=== PATIENT | female | born 1945 | race Two or more races ===

== ENCOUNTER 2020-12-09 13:26 | Inpatient (IN) | payer MEDICARE, OTHER ==
[~2020-12-09] VITALS: Ht 162.6 cm; Wt 83.7 kg
[2020-12-09 14:51] LABS: Basophils # (auto) 0 10 ^3/uL (0-0.2); Eosinophils # (auto) 0 10 ^3/uL (0-0.8); Eosinophils % (auto) 0.2 % (0.0-7.0); Hemoglobin 13.1 g/dL (12.2-16.2); Lymphocytes # (auto) 0.6 10 ^3/uL (0.4-5.4); Mean Corpuscular Volume 95.9 fL (80.0-100.0); Monocytes # (auto) 0.5 10 ^3/uL (0-1.3)
[2020-12-09 14:53] LABS: Basophils % (auto) 0.3 % (0.0-2.0); Hematocrit 37.2 % (36.0-46.0); Lymphocytes % (auto) 10.8 % (10.0-50.0); Mean Corpuscular Hemoglobin 33.8 pg (28.0-32.0); Mean Corpuscular Hgb Conc. 35.3 g/dL (32.0-36.0); Monocytes % (auto) 9.1 % (0.0-12.0); Neutrophils # (auto) 4.7 10 ^3/uL (1.6-8.6); Neutrophils % (auto) 79.6 % (37.0-80.0); Nucleated Red Blood Cells % 0.6 %; Platelet Count (auto) 39 10^3/uL (140-450); Red Blood Cells 3.88 10^6/uL (4.0-5.20); Red Cell Distribution Width 15.8 % (11.8-14.3); White Blood Cell 5.9 10^3/uL (4.4-10.8)
[2020-12-09 15:01] LABS: Albumin 3.2 g/dL (3.4-5.0); Calcium 7.8 mg/dL (8.5-10.1); Chloride 108 mmol/L (98-107); Potassium 3.3 mmol/L (3.5-5.1); Sodium 136 mmol/L (136-145)
[2020-12-09 15:04] LABS: Alanine Aminotransferase 20 U/L (13-56); Anion Gap 7 (5-15); Aspartate Aminotransferase 26 U/L (15-37); BUN/Creatinine Ratio 15.7; Blood Urea Nitrogen 13 mg/dL (7-18); Carbon Dioxide 21 mmol/L (21-32); GFR African American 86 mL/min; GFR Non-African American 71 mL/min; Glucose 203 mg/dL (74-106)
[2020-12-09 15:05] LABS: Alkaline Phosphatase 59 U/L (45-117); Bilirubin, Total 5.8 mg/dL (0.2-1.0)
[2020-12-09] MEDS ORDERED: POTASSIUM EFFERVESENT TAB 25 MEQ PO ONE (17:00)
[2020-12-09 18:15] LABS: Urine Bacteria NONE SEEN /hpf (None Seen); Urine Blood Negative /uL (Negative); Urine Mucus FEW (None Seen); Urine Specific Gravity 1.023 (1.001-1.035); Urine WBC 3 /hpf (0 - 5)
[2020-12-09] MEDS ORDERED: HYDROcodone-ACET 5/325MG TAB PO PRN (19:00)
[2020-12-09] MEDS ORDERED: IPRATROPIUM BROM 0.5 MG/2.5ML INH SOL NEB PRN (19:00)
[2020-12-09] MEDS ORDERED: NITROGLYCERIN 0.4 MG SL TAB SL PRN (19:00)
[2020-12-09] MEDS ORDERED: levoFLOXacin 500MG 100 ML IV SCH (19:00)
[2020-12-09] MEDS ORDERED: DEXTROSE (50%) 50ML SYRG IV PRN (19:00)
[2020-12-09] MEDS ORDERED: SODIUM CHLORIDE 0.9% 1,000 ML IV ONE (19:00)
[2020-12-09] MEDS ORDERED: DOCUSATE SOD 100 MG CAP PO PRN (19:00)
[2020-12-09] MEDS ORDERED: ONDANSETRON HCL 4 MG/2 ML VIAL IV PRN (19:00)
[2020-12-09] MEDS ORDERED: MORPHINE SULF INJ 2 MG/ML SYRINGE 1ML IV PRN ×2 (19:00)
[2020-12-09] MEDS ORDERED: ALBUTEROL SULF 2.5 MG/0.5ML(0.5%) NEB SOLN NEB PRN (19:00)
[2020-12-09 19:07] VITALS: BP 146/66
[2020-12-09] MEDS: ACETAMINOPHEN 500 MG TAB PO PRN (20:00)
[2020-12-09 22:00] VITALS: BP 123/70
[2020-12-09] MEDS: ACCU-CHEK COMFORT CURVE STRIP VI SCH (22:00)
[2020-12-09] MEDS: InsuLIN REG 1unit/0.01ml Soln (100units/ml) SC SCH (22:00)
[2020-12-09] MEDS ORDERED: SPIR25TA8 PO (22:15)
[2020-12-09] MEDS ORDERED: MECL25TA18 PO (22:15)
[2020-12-09] MEDS ORDERED: POTA8TAB2 PO (22:15)
[2020-12-09] MEDS ORDERED: PANT1INJ3 PO (22:15)
[2020-12-09] MEDS ORDERED: FURO40TA4 PO (22:15)
[2020-12-10 04:32] VITALS: BP 134/76
[2020-12-10 06:05] LABS: Basophils # (auto) 0 10 ^3/uL (0-0.2); Hemoglobin 11.8 g/dL (12.2-16.2); Lymphocytes # (auto) 0.5 10 ^3/uL (0.4-5.4); Monocytes # (auto) 0.3 10 ^3/uL (0-1.3); Neutrophils # (auto) 2.6 10 ^3/uL (1.6-8.6); Red Blood Cells 3.47 10^6/uL (4.0-5.20)
[2020-12-10 06:08] LABS: Basophils % (auto) 0.3 % (0.0-2.0); Eosinophils # (auto) 0.1 10 ^3/uL (0-0.8); Eosinophils % (auto) 1.5 % (0.0-7.0); Hematocrit 32.9 % (36.0-46.0); Lymphocytes % (auto) 13.7 % (10.0-50.0); Mean Corpuscular Hgb Conc. 35.8 g/dL (32.0-36.0); Mean Corpuscular Volume 94.9 fL (80.0-100.0); Monocytes % (auto) 9.4 % (0.0-12.0); Neutrophils % (auto) 75.1 % (37.0-80.0); Nucleated Red Blood Cells % 0.1 %; Platelet Count (auto) 26 10^3/uL (140-450); Red Cell Distribution Width 15.6 % (11.8-14.3); White Blood Cell 3.4 10^3/uL (4.4-10.8)
[2020-12-10] MEDS: ACCU-CHEK COMFORT CURVE STRIP VI SCH ×2 (06:22→11:54)
[2020-12-10] MEDS: InsuLIN REG 1unit/0.01ml Soln (100units/ml) SC SCH ×2 (06:22→11:57)
[2020-12-10 06:34] LABS: Potassium 3.6 mmol/L (3.5-5.1)
[2020-12-10 06:43] LABS: Albumin 2.8 g/dL (3.4-5.0); BUN/Creatinine Ratio 19.6; Bilirubin, Total 5.6 mg/dL (0.2-1.0); Calcium 7.5 mg/dL (8.5-10.1); Total Protein 6.3 g/dL (6.4-8.2)
[2020-12-10] MEDS ORDERED: VANCOMYCIN PER PHARMACY 0 MG IV SCH (06:45)
[2020-12-10 08:00] VITALS: BP 138/60
[2020-12-10 08:35] VITALS: BP 138/60
[2020-12-10] MEDS ORDERED: VANCOMYCIN 1GM/250ML 250 ML IV ONE (09:15)
[2020-12-10] MEDS ORDERED: FAMOTIDINE 20 MG TAB PO SCH (10:00)
[2020-12-10] MEDS ORDERED: diphenhdrAMINE HCL 25 MG CAP PO ONE (12:15)
[2020-12-10 12:53] VITALS: BP 125/70
[2020-12-10] MEDS ORDERED: VANCOMYCIN HCL 125MG/5ML ORAL SOL GT ONE (14:15)
[2020-12-10] MEDS ORDERED: SODIUM CHLORIDE 0.9% 1,000 ML IV ONE (14:15)
[2020-12-10] MEDS ORDERED: guaiFENesin-DM 100/10mg/5ml SYR PO PRN (14:15)
[2020-12-10] MEDS: ACETAMINOPHEN 500 MG TAB PO PRN (16:25)
[2020-12-10 17:00] VITALS: BP 132/74
[2020-12-10] MEDS: VANCOMYCIN HCL 125MG/5ML ORAL SOL PO SCH ×2 (18:32→22:02)
[2020-12-10] MEDS ORDERED: levoFLOXacin 750MG 150 ML IV SCH (19:00)
[2020-12-10] MEDS ORDERED: levoFLOXacin 500MG 100 ML IV SCH (20:00)
[2020-12-10 22:00] VITALS: BP 111/74
[2020-12-11] MEDS ORDERED: VANCOMYCIN 1GM/250ML 250 ML IV SCH (03:00)
[2020-12-11 05:02] VITALS: BP 134/68
[2020-12-11 06:14] LABS: INR 1.21 (0.9-1.15)
[2020-12-11] MEDS: VANCOMYCIN HCL 125MG/5ML ORAL SOL PO SCH ×4 (06:17→21:35)
[2020-12-11 06:26] LABS: Albumin 2.8 g/dL (3.4-5.0); Calcium 7.6 mg/dL (8.5-10.1); Potassium 3.8 mmol/L (3.5-5.1)
[2020-12-11 06:29] LABS: Total Protein 6.2 g/dL (6.4-8.2)
[2020-12-11 06:56] LABS: Basophils # (auto) 0 10 ^3/uL (0-0.2); Basophils % (auto) 0.9 % (0.0-2.0); Eosinophils # (auto) 0.1 10 ^3/uL (0-0.8); Eosinophils % (auto) 2.8 % (0.0-7.0); Hematocrit 31.9 % (36.0-46.0); Hemoglobin 11.4 g/dL (12.2-16.2); Lymphocytes # (auto) 0.5 10 ^3/uL (0.4-5.4); Mean Corpuscular Hgb Conc. 35.6 g/dL (32.0-36.0); Mean Corpuscular Volume 95.6 fL (80.0-100.0); Monocytes # (auto) 0.2 10 ^3/uL (0-1.3); Monocytes % (auto) 8.7 % (0.0-12.0); Neutrophils # (auto) 1.7 10 ^3/uL (1.6-8.6); Neutrophils % (auto) 68.6 % (37.0-80.0); Nucleated Red Blood Cells % 0.3 %; Platelet Count (auto) 32 10^3/uL (140-450); Red Blood Cells 3.34 10^6/uL (4.0-5.20); Red Cell Distribution Width 15.5 % (11.8-14.3); White Blood Cell 2.4 10^3/uL (4.4-10.8)
[2020-12-11 08:00] VITALS: BP 119/71
[2020-12-11 08:56] VITALS: BP 119/71
[2020-12-11] MEDS: FAMOTIDINE 20 MG TAB PO SCH (10:28)
[2020-12-11] MEDS ORDERED: SPIRONOLACTONE 25 MG TAB PO ONE (11:00)
[2020-12-11] MEDS ORDERED: cefTRIAXone 1GM/50ML D5W 50 ML IV ONE (11:00)
[2020-12-11 13:00] VITALS: BP 108/66
[2020-12-11 16:50] VITALS: BP 129/71
[2020-12-11 22:32] VITALS: BP 122/72
[2020-12-12 05:19] VITALS: BP 99/57
[2020-12-12] MEDS: VANCOMYCIN HCL 125MG/5ML ORAL SOL PO SCH ×4 (06:07→22:09)
[2020-12-12 07:06] LABS: Basophils # (auto) 0 10 ^3/uL (0-0.2); Basophils % (auto) 0.5 % (0.0-2.0); Eosinophils # (auto) 0.1 10 ^3/uL (0-0.8); Hemoglobin 11.6 g/dL (12.2-16.2); Lymphocytes # (auto) 0.6 10 ^3/uL (0.4-5.4); Mean Corpuscular Volume 95.2 fL (80.0-100.0); Monocytes # (auto) 0.2 10 ^3/uL (0-1.3); Neutrophils # (auto) 1.8 10 ^3/uL (1.6-8.6); Platelet Count (auto) 47 10^3/uL (140-450)
[2020-12-12 07:09] LABS: Eosinophils % (auto) 3.5 % (0.0-7.0); Lymphocytes % (auto) 22.7 % (10.0-50.0); Mean Corpuscular Hemoglobin 34.5 pg (28.0-32.0); Mean Corpuscular Hgb Conc. 36.2 g/dL (32.0-36.0); Monocytes % (auto) 7.9 % (0.0-12.0); Neutrophils % (auto) 65.4 % (37.0-80.0); Nucleated Red Blood Cells % 0.2 %; Red Blood Cells 3.36 10^6/uL (4.0-5.20); Red Cell Distribution Width 15.2 % (11.8-14.3); White Blood Cell 2.8 10^3/uL (4.4-10.8)
[2020-12-12 07:20] LABS: Potassium 3.8 mmol/L (3.5-5.1)
[2020-12-12 07:25] LABS: Albumin 2.7 g/dL (3.4-5.0); BUN/Creatinine Ratio 19.6
[2020-12-12 07:27] LABS: Bilirubin, Total 1.6 mg/dL (0.2-1.0); Total Protein 6.1 g/dL (6.4-8.2)
[2020-12-12 08:40] VITALS: BP 123/66
[2020-12-12] MEDS: cefTRIAXone 1GM/50ML D5W 50 ML IV SCH (10:32)
[2020-12-12] MEDS: FAMOTIDINE 20 MG TAB PO SCH (10:32)
[2020-12-12] MEDS: SPIRONOLACTONE 25 MG TAB PO SCH (10:32)
[2020-12-12 13:00] VITALS: BP 119/62
[2020-12-12 17:00] VITALS: BP 123/74
[2020-12-12 21:33] VITALS: BP 123/74
[2020-12-12 21:49] VITALS: BP 107/58
[2020-12-13 04:55] VITALS: BP 111/55
[2020-12-13] MEDS: VANCOMYCIN HCL 125MG/5ML ORAL SOL PO SCH ×2 (05:58→12:00)
[2020-12-13 07:31] LABS: Basophils # (auto) 0 10 ^3/uL (0-0.2); Eosinophils # (auto) 0.1 10 ^3/uL (0-0.8); Lymphocytes # (auto) 0.6 10 ^3/uL (0.4-5.4); Monocytes # (auto) 0.2 10 ^3/uL (0-1.3); Neutrophils # (auto) 1.9 10 ^3/uL (1.6-8.6); Nucleated Red Blood Cells % 0.1 %
[2020-12-13 07:32] LABS: Basophils % (auto) 0.9 % (0.0-2.0); Eosinophils % (auto) 2.7 % (0.0-7.0); Hematocrit 33.6 % (36.0-46.0); Hemoglobin 12.1 g/dL (12.2-16.2); Lymphocytes % (auto) 20.3 % (10.0-50.0); Mean Corpuscular Hemoglobin 34.2 pg (28.0-32.0); Monocytes % (auto) 7.7 % (0.0-12.0); Neutrophils % (auto) 68.4 % (37.0-80.0); Platelet Count (auto) 54 10^3/uL (140-450); Red Blood Cells 3.54 10^6/uL (4.0-5.20); Red Cell Distribution Width 15.3 % (11.8-14.3); White Blood Cell 2.7 10^3/uL (4.4-10.8)
[2020-12-13 07:46] LABS: Potassium 3.8 mmol/L (3.5-5.1)
[2020-12-13 07:52] LABS: BUN/Creatinine Ratio 18.3; Calcium 8.5 mg/dL (8.5-10.1)
[2020-12-13] MEDS: cefTRIAXone 1GM/50ML D5W 50 ML IV SCH (08:47)
[2020-12-13 09:00] VITALS: BP 120/50
[2020-12-13] MEDS: FAMOTIDINE 20 MG TAB PO SCH (09:38)
[2020-12-13] MEDS: SPIRONOLACTONE 25 MG TAB PO SCH (09:38)
[2020-12-13 13:00] VITALS: BP 110/55
== END 2020-12-13 15:30 | disposition home or self-care (01) | DRG 871 ==
LOC: ER 13:26 → TELE 18:51 → TELE-EAST 20:38
PROVIDERS: ADMIT Nurse Practitioner Acute Care; ATTEND Internal Medicine
DX: A41.9 Sepsis, unspecified organism (principal); N17.0 Acute kidney failure with tubular necrosis; E44.0 Moderate protein-calorie malnutrition; K76.6 Portal hypertension; I50.32 Chronic diastolic (congestive) heart failure; Z20.822 Contact with and (suspected) exposure to COVID-19; E87.6 Hypokalemia; K74.60 Unspecified cirrhosis of liver; B96.5 Pseudomonas (aeruginosa) (mallei) (pseudomallei) as the cause of diseases classified elsewhere; D69.59 Other secondary thrombocytopenia; E66.9 Obesity, unspecified; E11.22 Type 2 diabetes mellitus with diabetic chronic kidney disease; J20.9 Acute bronchitis, unspecified; K52.9 Noninfective gastroenteritis and colitis, unspecified; K80.20 Calculus of gallbladder without cholecystitis without obstruction; N18.9 Chronic kidney disease, unspecified; Z68.31 Body mass index [BMI] 31.0-31.9, adult
CPT/HCPCS: 36415; 71045; 71250; 74176; 80048; 80053; 81001; 82565; 82962; 83036; 83605; 83735; 83880; 84443; 84484; 85025; 85610; 87040; 87045; 87070; 87077; 87186; 87205; 87426; 87427; 87493; 87804; 93005; 93306; 94640; 96365; 96368; G0378; J0696; J1815; J1956

== ENCOUNTER 2021-03-25 14:39 | Emergency (ER) | payer MEDICARE, OTHER ==
[~2021-03-25] VITALS: Ht 162.6 cm; Wt 77.1 kg
[~2021-03-25 14:39] MED LIST: FURO40TA4 PO; MECL25TA18 PO; PANT1INJ3 PO; POTA8TAB2 PO; SPIR25TA8 PO
[2021-03-25 15:37] LABS: Basophils # (auto) 0 10 ^3/uL (0-0.2); Eosinophils # (auto) 0.1 10 ^3/uL (0-0.8); Hemoglobin 14.4 g/dL (12.2-16.2); Lymphocytes # (auto) 0.9 10 ^3/uL (0.4-5.4); Mean Corpuscular Volume 96.1 fL (80.0-100.0); Monocytes # (auto) 0.4 10 ^3/uL (0-1.3); Monocytes % (auto) 6.2 % (0.0-12.0); Red Cell Distribution Width 15.8 % (11.8-14.3)
[2021-03-25 15:38] LABS: Basophils % (auto) 0.7 % (0.0-2.0); Eosinophils % (auto) 1.3 % (0.0-7.0); Hematocrit 40.2 % (36.0-46.0); Lymphocytes % (auto) 13.9 % (10.0-50.0); Mean Corpuscular Hemoglobin 34.4 pg (28.0-32.0); Mean Corpuscular Hgb Conc. 35.8 g/dL (32.0-36.0); Neutrophils # (auto) 4.9 10 ^3/uL (1.6-8.6); Neutrophils % (auto) 77.9 % (37.0-80.0); Red Blood Cells 4.18 10^6/uL (4.0-5.20); White Blood Cell 6.3 10^3/uL (4.4-10.8)
[2021-03-25 15:54] LABS: Albumin 3.1 g/dL (3.4-5.0); BUN/Creatinine Ratio 14.5; Calcium 8.3 mg/dL (8.5-10.1)
[2021-03-25 15:57] LABS: Bilirubin, Total 3.4 mg/dL (0.2-1.0); Total Protein 6.6 g/dL (6.4-8.2)
[2021-03-25 18:38] VITALS: BP 138/86
== END 2021-03-25 18:40 | disposition home or self-care (01) ==
LOC: ER 14:45
DX: N93.8 Other specified abnormal uterine and vaginal bleeding (principal); D21.9 Benign neoplasm of connective and other soft tissue, unspecified; I10 Essential (primary) hypertension; E11.9 Type 2 diabetes mellitus without complications
CPT/HCPCS: 36415; 76830; 76856; 80053; 85025; 86850; 86900; 86901; 93005

== ENCOUNTER 2022-05-24 17:17 | Inpatient (IN) | payer MEDICARE, OTHER ==
[~2022-05-24] VITALS: Ht 160 cm; Wt 81.9 kg
[~2022-05-24 17:17] MED LIST changes: +AZIT250T9 PO
[2022-05-24 19:03] LABS: Basophils # (auto) 0 10 ^3/uL (0-0.2); Eosinophils # (auto) 0 10 ^3/uL (0-0.8); Eosinophils % (auto) 0.4 % (0.0-7.0); Lymphocytes # (auto) 0.7 10 ^3/uL (0.4-5.4); Nucleated Red Blood Cells % 0.1 %
[2022-05-24 19:05] LABS: Basophils % (auto) 0.5 % (0.0-2.0); Hematocrit 40.1 % (36.0-46.0); Hemoglobin 13.8 g/dL (12.2-16.2); Lymphocytes % (auto) 11.3 % (10.0-50.0); Mean Corpuscular Hemoglobin 32.6 pg (28.0-32.0); Mean Corpuscular Hgb Conc. 34.5 g/dL (32.0-36.0); Mean Corpuscular Volume 94.6 fL (80.0-100.0); Monocytes # (auto) 0.5 10 ^3/uL (0-1.3); Monocytes % (auto) 7.2 % (0.0-12.0); Neutrophils # (auto) 5.1 10 ^3/uL (1.6-8.6); Neutrophils % (auto) 80.6 % (37.0-80.0); Red Blood Cells 4.24 10^6/uL (4.0-5.20); Red Cell Distribution Width 15.4 % (11.8-14.3); White Blood Cell 6.3 10^3/uL (4.4-10.8)
[2022-05-24 19:19] LABS: Albumin 3.3 g/dL (3.4-5.0); Calcium 8.5 mg/dL (8.5-10.1); Potassium 3.7 mmol/L (3.5-5.1)
[2022-05-24 19:23] LABS: BUN/Creatinine Ratio 12.8; Bilirubin, Total 4.9 mg/dL (0.2-1.0); Total Protein 7.1 g/dL (6.4-8.2)
[2022-05-24 20:45] LABS: Urine Bacteria FEW /hpf (None Seen); Urine Blood Negative /uL (Negative); Urine Specific Gravity 1.005 (1.001-1.035); Urine WBC 1 /hpf (0 - 5)
[2022-05-25] MEDS ORDERED: AZITHROMYCIN 250 MG TAB PO ONE (07:45)
[2022-05-25] MEDS ORDERED: cefTRIAXone 1GM/50ML D5W 50 ML IV ONE (07:45)
[2022-05-25] MEDS ORDERED: NITROGLYCERIN 0.4 MG SL TAB SL PRN (08:15)
[2022-05-25] MEDS ORDERED: MORPHINE SULFATE INJ 2 MG/ml SYRG IV PRN (08:15)
[2022-05-25] MEDS ORDERED: CEFTRIAXONE SODIUM 2 GM in D5W 5% 50 ML IV SCH (10:49)
[2022-05-25] MEDS: PROPRANOLOL HCL 20 MG TAB PO SCH ×2 (11:15→21:30)
[2022-05-25] MEDS ORDERED: DEXTROSE (50%) 50ML SYRG IV PRN (11:15)
[2022-05-25] MEDS: rifAXIMin 550 MG TAB PO SCH ×2 (11:38→21:30)
[2022-05-25] MEDS: ACCU-CHEK COMFORT CURVE STRIP VI SCH ×3 (11:43→21:17)
[2022-05-25] MEDS: InsuLIN REG 1unit/0.01ml Soln (100units/ml) SC SCH ×3 (11:46→21:31)
[2022-05-25 11:52] LABS: Cholesterol 104 mg/dL (< 200); HDL Cholesterol 47 mg/dL (40-59); LDL Cholesterol 61 mg/dL (< 100); Triglycerides 111 mg/dL (< 150)
[2022-05-25] MEDS ORDERED: LACTULOSE 20Gm/30ML SOLN PO ONE (14:00)
[2022-05-25 16:37] VITALS: BP 137/69
[2022-05-25] MEDS ORDERED: PROP10TA57 PO (18:25)
[2022-05-25 20:00] VITALS: BP 126/58
[2022-05-25 22:00] VITALS: BP 126/58
[2022-05-25] MEDS ORDERED: PROPRANOLOL HCL 20 MG TAB PO SCH (22:00)
[2022-05-26] VITALS (7 sets, daily range): BP systolic 100–157; BP diastolic 49–67
[2022-05-26] MEDS: InsuLIN REG 1unit/0.01ml Soln (100units/ml) SC SCH ×4 (06:14→21:22)
[2022-05-26] MEDS: ACCU-CHEK COMFORT CURVE STRIP VI SCH ×4 (06:29→21:22)
[2022-05-26 07:10] LABS: Eosinophils # (auto) 0.1 10 ^3/uL (0-0.8); Lymphocytes # (auto) 0.8 10 ^3/uL (0.4-5.4); Monocytes # (auto) 0.3 10 ^3/uL (0-1.3); Neutrophils # (auto) 2.5 10 ^3/uL (1.6-8.6); Red Cell Distribution Width 15.4 % (11.8-14.3)
[2022-05-26 07:13] LABS: Basophils # (auto) 0 10 ^3/uL (0-0.2); Basophils % (auto) 0.7 % (0.0-2.0); Eosinophils % (auto) 3.5 % (0.0-7.0); Hematocrit 37.8 % (36.0-46.0); Hemoglobin 13.2 g/dL (12.2-16.2); Lymphocytes % (auto) 21.8 % (10.0-50.0); Mean Corpuscular Volume 94.2 fL (80.0-100.0); Monocytes % (auto) 7.5 % (0.0-12.0); Neutrophils % (auto) 66.5 % (37.0-80.0); Red Blood Cells 4.01 10^6/uL (4.0-5.20); White Blood Cell 3.7 10^3/uL (4.4-10.8)
[2022-05-26 07:14] LABS: Mean Corpuscular Hemoglobin 32.9 pg (28.0-32.0); Mean Corpuscular Hgb Conc. 34.9 g/dL (32.0-36.0)
[2022-05-26 07:40] LABS: Potassium 3.8 mmol/L (3.5-5.1)
[2022-05-26 07:49] LABS: Albumin 2.8 g/dL (3.4-5.0); Calcium 7.9 mg/dL (8.5-10.1); Total Protein 6.1 g/dL (6.4-8.2)
[2022-05-26] MEDS ORDERED: cefTRIAXone 1GM/50ML D5W 50 ML IV SCH (09:00)
[2022-05-26] MEDS ORDERED: AZITHROMYCIN 500MG/ 250ML 250 ML IV SCH (10:00)
[2022-05-26] MEDS: PROPRANOLOL HCL 20 MG TAB PO SCH (10:00)
[2022-05-26] MEDS: rifAXIMin 550 MG TAB PO SCH (10:13)
[2022-05-26] MEDS: SPIRONOLACTONE 25 MG TAB PO SCH (10:14)
[2022-05-26] MEDS: PANTOPRAZOLE 40 MG TAB PO SCH (10:15)
[2022-05-26] MEDS ORDERED: ALBUTEROL SULF 2.5 MG/0.5ML(0.5%) NEB SOLN NEB PRN (12:00)
[2022-05-26] MEDS ORDERED: IPRATROPIUM BROM 0.5 MG/2.5ML INH SOL NEB PRN (12:00)
[2022-05-27 05:00] VITALS: BP 112/56
[2022-05-27 05:25] LABS: Basophils # (auto) 0 10 ^3/uL (0-0.2); Eosinophils # (auto) 0.1 10 ^3/uL (0-0.8); Hemoglobin 12.5 g/dL (12.2-16.2); Lymphocytes # (auto) 0.9 10 ^3/uL (0.4-5.4); Monocytes # (auto) 0.2 10 ^3/uL (0-1.3); Neutrophils # (auto) 2.1 10 ^3/uL (1.6-8.6); White Blood Cell 3.4 10^3/uL (4.4-10.8)
[2022-05-27 05:28] LABS: Basophils % (auto) 1.1 % (0.0-2.0); Eosinophils % (auto) 3.1 % (0.0-7.0); Hematocrit 35.5 % (36.0-46.0); Mean Corpuscular Hemoglobin 34.1 pg (28.0-32.0); Mean Corpuscular Hgb Conc. 35.3 g/dL (32.0-36.0); Mean Corpuscular Volume 96.4 fL (80.0-100.0); Monocytes % (auto) 6.5 % (0.0-12.0); Neutrophils % (auto) 63.3 % (37.0-80.0); Nucleated Red Blood Cells % 0.1 %; Red Blood Cells 3.68 10^6/uL (4.0-5.20); Red Cell Distribution Width 15.4 % (11.8-14.3)
[2022-05-27 05:42] LABS: Albumin 2.6 g/dL (3.4-5.0); Calcium 7.9 mg/dL (8.5-10.1); Potassium 3.7 mmol/L (3.5-5.1)
[2022-05-27 05:44] LABS: BUN/Creatinine Ratio 25.5
[2022-05-27 05:57] LABS: Bilirubin, Total 2.5 mg/dL (0.2-1.0); Total Protein 5.7 g/dL (6.4-8.2)
[2022-05-27] MEDS: ACCU-CHEK COMFORT CURVE STRIP VI SCH ×2 (06:26→13:40)
[2022-05-27] MEDS: InsuLIN REG 1unit/0.01ml Soln (100units/ml) SC SCH ×2 (06:30→13:41)
[2022-05-27 08:00] VITALS: BP 124/61
[2022-05-27 09:00] VITALS: BP 124/61
[2022-05-27] MEDS ORDERED: levoFLOXacin 500MG 100 ML IV SCH (10:00)
[2022-05-27] MEDS ORDERED: DOXY-286 PO (10:44)
[2022-05-27] MEDS: SPIRONOLACTONE 25 MG TAB PO SCH (11:28)
[2022-05-27] MEDS: PANTOPRAZOLE 40 MG TAB PO SCH (11:29)
[2022-05-27 12:51] VITALS: BP 121/59
[2022-05-27 13:38] VITALS: BP 126/58
== END 2022-05-27 16:50 | disposition home or self-care (01) | DRG 441 ==
LOC: ER 17:17 → OVERFLOW 05-25 08:19 → WEST WING 05-25 14:37
PROVIDERS: ADMIT Family Medicine; ATTEND Nurse Practitioner Acute Care
DX: K72.90 Hepatic failure, unspecified without coma (principal); J18.9 Pneumonia, unspecified organism; E46 Unspecified protein-calorie malnutrition; G93.40 Encephalopathy, unspecified; I50.32 Chronic diastolic (congestive) heart failure; I85.10 Secondary esophageal varices without bleeding; E11.9 Type 2 diabetes mellitus without complications; I11.0 Hypertensive heart disease with heart failure; D73.1 Hypersplenism; Z20.822 Contact with and (suspected) exposure to COVID-19; E66.9 Obesity, unspecified; J45.909 Unspecified asthma, uncomplicated; W18.39XA Other fall on same level, initial encounter; K74.60 Unspecified cirrhosis of liver; D69.6 Thrombocytopenia, unspecified; I25.2 Old myocardial infarction; Z82.49 Family history of ischemic heart disease and other diseases of the circulatory system; Z83.3 Family history of diabetes mellitus; Y93.89 Activity, other specified; Y92.89 Other specified places as the place of occurrence of the external cause; Y99.8 Other external cause status; Z68.28 Body mass index [BMI] 28.0-28.9, adult
CPT/HCPCS: 36415; 70450; 71045; 71250; 72125; 74176; 80053; 80061; 81001; 82140; 82270; 82962; 83036; 83605; 83690; 83880; 84443; 84484; 85025; 93005; 96365; G0378; J0696; J1815; J1956; J7060

== ENCOUNTER 2023-05-10 09:17 | Emergency (ER) | payer MEDICARE, OTHER ==
[~2023-05-10] VITALS: Ht 162.6 cm; Wt 80.0 kg
[~2023-05-10 09:17] MED LIST changes: -AZIT250T9 PO; +DOXY-286 PO; -MECL25TA18 PO; -PANT1INJ3 PO; -POTA8TAB2 PO; +POTA8TAB38 PO; +PROP1TAB51 PO
[2023-05-10 10:00] VITALS: BP 153/66; PULSE 70; RESP 20; TEMP 97.1; O2SAT 99
[2023-05-10] MEDS ORDERED: CEPH500C PO (12:28)
[2023-05-10] MEDS ORDERED: CEPHALEXIN 250 MG CAP PO ONE (12:30)
[2023-05-10] MEDS ORDERED: HYDROcodone-ACET 5/325MG TAB PO ONE (12:30)
== END 2023-05-10 13:17 | disposition home or self-care (01) ==
LOC: ER 09:17
DX: N63.20 Unspecified lump in the left breast, unspecified quadrant (principal); I11.0 Hypertensive heart disease with heart failure; I50.9 Heart failure, unspecified; E11.9 Type 2 diabetes mellitus without complications; Z79.2 Long term (current) use of antibiotics; Z79.899 Other long term (current) drug therapy; Z88.7 Allergy status to serum and vaccine
CPT/HCPCS: 76642

== ENCOUNTER 2023-09-29 10:19 | Emergency (ER) | payer MEDICARE, OTHER ==
[~2023-09-29] VITALS: Ht 167.6 cm; Wt 77.2 kg
[~2023-09-29 10:19] MED LIST changes: +CEPH500C PO; +HYDR-4902 PO
[2023-09-29 12:22] LABS: Basophils # (auto) 0 10 ^3/uL (0-0.2); Basophils % (auto) 0.5 % (0.0-2.0); Eosinophils # (auto) 0.1 10 ^3/uL (0-0.8); Eosinophils % (auto) 1.9 % (0.0-7.0); Hemoglobin 14.1 g/dL (12.2-16.2); Lymphocytes # (auto) 0.9 10 ^3/uL (0.4-5.4); Lymphocytes % (auto) 17.6 % (10.0-50.0); Mean Corpuscular Hemoglobin 33.7 pg (28.0-32.0); Mean Corpuscular Hgb Conc. 35.2 g/dL (32.0-36.0); Mean Corpuscular Volume 95.7 fL (80.0-100.0); Monocytes # (auto) 0.3 10 ^3/uL (0-1.3); Monocytes % (auto) 6.2 % (0.0-12.0); Neutrophils # (auto) 3.8 10 ^3/uL (1.6-8.6); Neutrophils % (auto) 73.8 % (37.0-80.0); Nucleated Red Blood Cells % 0.1 %; Red Blood Cells 4.18 10^6/uL (4.0-5.20); White Blood Cell 5.1 10^3/uL (4.4-10.8)
[2023-09-29 12:37] LABS: INR 1.15 (0.9-1.15); Partial Thromboplastin Time 29.2 SEC (24.5-34.5)
[2023-09-29 13:39] LABS: Platelet Estimate Decreased
[2023-09-29 14:06] VITALS: BP 132/60; PULSE 60; RESP 18; TEMP 98; O2SAT 97
== END 2023-09-29 14:07 | disposition home or self-care (01) ==
LOC: ER 10:19
DX: N93.8 Other specified abnormal uterine and vaginal bleeding (principal); D25.9 Leiomyoma of uterus, unspecified; E11.9 Type 2 diabetes mellitus without complications; I11.0 Hypertensive heart disease with heart failure; I50.9 Heart failure, unspecified
CPT/HCPCS: 36415; 76856; 85025; 85610; 85730

== ENCOUNTER 2024-02-28 18:56 | Inpatient (IN) | payer MEDICARE, OTHER ==
[~2024-02-28] VITALS: Ht 162.6 cm; Wt 75.0 kg
[2024-02-28 19:55] LABS: Basophils # (auto) 0 10 ^3/uL (0-0.2); Basophils % (auto) 0.8 % (0.0-2.0); Eosinophils # (auto) 0.1 10 ^3/uL (0-0.8); Eosinophils % (auto) 2.5 % (0.0-7.0); Lymphocytes % (auto) 19.6 % (10.0-50.0); Mean Corpuscular Hemoglobin 34.5 pg (28.0-32.0); Mean Corpuscular Hgb Conc. 35.7 g/dL (32.0-36.0); Mean Corpuscular Volume 96.8 fL (80.0-100.0); Monocytes # (auto) 0.4 10 ^3/uL (0-1.3); Monocytes % (auto) 7.2 % (0.0-12.0); Neutrophils # (auto) 3.7 10 ^3/uL (1.6-8.6); Neutrophils % (auto) 69.9 % (37.0-80.0); Nucleated Red Blood Cells % 0.3 %; Red Blood Cells 4.34 10^6/uL (4.0-5.20); Red Cell Distribution Width 15.8 % (11.8-14.3); White Blood Cell 5.3 10^3/uL (4.4-10.8)
[2024-02-28 20:00] LABS: Alanine Aminotransferase 25 U/L (7-40); Albumin 3.4 g/dL (3.2-4.8); Alkaline Phosphatase 82 U/L (46-116); Anion Gap 9 (5-15); Aspartate Aminotransferase 30 U/L (13-40); BUN/Creatinine Ratio 16.7 (10.0-20.0); Blood Urea Nitrogen 8 mg/dL (9-23); Carbon Dioxide 23 mmol/L (20-30); Chloride 110 mmol/L (98-107); Glucose 157 mg/dL (74-106); Sodium 142 mmol/L (136-145)
[2024-02-28 20:01] LABS: Bilirubin, Total 5.9 mg/dL (0.2-1.0); Total Protein 6.1 g/dL (5.7-8.2)
[2024-02-29] VITALS (7 sets, daily range): BP systolic 97–140; BP diastolic 48–69; PULSE 47–98; RESP 14–17; TEMP 97.5–98.6; O2SAT 92–98
[2024-02-29] MEDS ORDERED: MORPHINE SULFATE INJ 2 MG/ml SYRG IV PRN
[2024-02-29] MEDS: ONDANSETRON HCL 4 MG/2 ML VIAL IV ONE
[2024-02-29] MEDS ORDERED: ONDANSETRON HCL 4 MG/2 ML VIAL IV PRN
[2024-02-29] MEDS ORDERED: DEXTROSE (50%) 50ML SYRG IV PRN
[2024-02-29] MEDS: MORPHINE SULFATE 4 MG/ML SYR/VIAL IV ONE (00:01)
[2024-02-29] MEDS: ACCU-CHEK COMFORT CURVE STRIP VI SCH (06:21)
[2024-02-29] MEDS: InsuLIN REG 1unit/0.01ml Soln (100units/ml) SC SCH (06:23)
[2024-02-29 08:06] LABS: Chloride 110 mmol/L (98-107); Potassium 4.1 mmol/L (3.5-5.1); Sodium 141 mmol/L (136-145)
[2024-02-29 08:07] LABS: Anion Gap 6 (5-15); Carbon Dioxide 25 mmol/L (20-30)
[2024-02-29 08:08] LABS: Calcium 8.8 mg/dL (8.5-10.1)
[2024-02-29 08:12] LABS: BUN/Creatinine Ratio 24.4 (10.0-20.0); Blood Urea Nitrogen 10 mg/dL (9-23); Glucose 137 mg/dL (74-106)
[2024-02-29] MEDS: SPIRONOLACTONE 25 MG TAB PO SCH (09:48)
[2024-02-29] MEDS: PROPRANOLOL HCL 20 MG TAB PO SCH (09:49)
[2024-02-29] MEDS: FUROSEMIDE 40 MG TAB PO SCH (09:50)
[2024-02-29] MEDS: ENOXAPARIN SOD 40 MG/0.4 ML SYRINGE SC SCH (09:51)
[2024-02-29] MEDS: LIDOCAINE 5% TOPICAL PATCH TOP ONE (17:19)
[2024-02-29] MEDS: ACETAMINOPHEN 325 MG TAB PO PRN (17:19)
[2024-02-29] MEDS: LACTULOSE 20Gm/30ML SOLN PO SCH (21:55)
[2024-03-01 01:00] VITALS: BP 115/61; PULSE 51; RESP 17; TEMP 97.6; O2SAT 96
[2024-03-01 05:00] VITALS: BP 115/66; PULSE 56; RESP 16; TEMP 97.5; O2SAT 95
[2024-03-01 05:59] LABS: Basophils # (auto) 0 10 ^3/uL (0-0.2); Eosinophils # (auto) 0.1 10 ^3/uL (0-0.8); Lymphocytes # (auto) 0.9 10 ^3/uL (0.4-5.4); Mean Corpuscular Hgb Conc. 36.3 g/dL (32.0-36.0); Mean Corpuscular Volume 96.6 fL (80.0-100.0); White Blood Cell 3.6 10^3/uL (4.4-10.8)
[2024-03-01 06:00] LABS: Basophils % (auto) 0.9 % (0.0-2.0); Eosinophils % (auto) 2.9 % (0.0-7.0); Hematocrit 36.9 % (36.0-46.0); Hemoglobin 13.4 g/dL (12.2-16.2); Lymphocytes % (auto) 24.2 % (10.0-50.0); Monocytes # (auto) 0.2 10 ^3/uL (0-1.3); Monocytes % (auto) 6.7 % (0.0-12.0); Neutrophils # (auto) 2.4 10 ^3/uL (1.6-8.6); Neutrophils % (auto) 65.3 % (37.0-80.0); Nucleated Red Blood Cells % 0.1 %; Red Blood Cells 3.81 10^6/uL (4.0-5.20); Red Cell Distribution Width 16.1 % (11.8-14.3)
[2024-03-01 06:05] LABS: INR 1.23 (0.9-1.15); Prothrombin Time 12.8 sec (9.3-11.8)
[2024-03-01 06:10] LABS: Alanine Aminotransferase 17 U/L (7-40); Alkaline Phosphatase 94 U/L (46-116); Anion Gap 7 (5-15); Aspartate Aminotransferase 22 U/L (13-40); Blood Urea Nitrogen 13 mg/dL (9-23); Calcium 8.7 mg/dL (8.7-10.4); Carbon Dioxide 28 mmol/L (20-30); Chloride 105 mmol/L (98-107); Glucose 170 mg/dL (74-106); Potassium 3.4 mmol/L (3.5-5.1); Sodium 140 mmol/L (136-145)
[2024-03-01 06:11] LABS: Bilirubin, Total 4.1 mg/dL (0.2-1.0); Total Protein 5.6 g/dL (5.7-8.2)
[2024-03-01 09:00] VITALS: BP 118/54; PULSE 53; RESP 18; TEMP 97.4; O2SAT 97
[2024-03-01] MEDS: POTASSIUM CHL 20 Meq TABLET PO ONE (10:23)
[2024-03-01] MEDS: LIDOCAINE 5% TOPICAL PATCH TOP SCH (10:26)
[2024-03-01 13:00] VITALS: BP 113/55; PULSE 54; RESP 18; TEMP 97.4; O2SAT 94
[2024-03-01] MEDS: CALCITONIN 200 UNIT/SPRAY NASAL ONE (13:45)
[2024-03-01] MEDS: CHOLECALCIFEROL (VITD3) 1,000UNIT=25mCg TAB PO ONE (15:22)
[2024-03-01] MEDS: CALCIUM ACETATE 667 MG CAP PO ONE (15:23)
[2024-03-01 17:00] VITALS: BP 108/60; PULSE 63; RESP 18; TEMP 98; O2SAT 96
[2024-03-01 20:03] LABS: Urine Bacteria MOD /hpf (None Seen); Urine Blood Negative /uL (Negative); Urine Clarity Clear (Clear); Urine Color Light-Yellow (Yellow); Urine Mucus FEW (None Seen); Urine Protein, UAD Negative (Negative); Urine Urobilinogen Normal (Negative); Urine WBC 2 /hpf (0 - 5)
[2024-03-01 21:00] VITALS: BP 103/60; PULSE 60; RESP 17; TEMP 98.1; O2SAT 97
[2024-03-02 05:00] VITALS: BP 96/50; PULSE 57; RESP 19; TEMP 98.3; O2SAT 93
[2024-03-02 08:38] VITALS: BP 120/65; PULSE 56; RESP 15; TEMP 97.3; O2SAT 98
[2024-03-02] MEDS: CALCITONIN 200 UNIT/SPRAY NASAL SCH (10:00)
[2024-03-02] MEDS: cefTRIAXone 1GM/50ML D5W 50 ML IV SCH (10:44)
[2024-03-02] MEDS: CHOLECALCIFEROL (VITD3) 1,000UNIT=25mCg TAB PO SCH (10:44)
[2024-03-02] MEDS: CALCIUM ACETATE 667 MG CAP PO SCH (10:45)
[2024-03-02 13:00] VITALS: BP 103/71; PULSE 58; RESP 15; TEMP 97.8; O2SAT 96
[2024-03-02 16:26] VITALS: BP 117/59; PULSE 61; RESP 16; TEMP 98.6; O2SAT 98
[2024-03-02 16:48] LABS: Base Excess 3.2 mmol/L (-2.0-2.0)
[2024-03-02 21:00] VITALS: BP 101/51; PULSE 60; RESP 19; TEMP 98.1; O2SAT 96
[2024-03-03] VITALS (7 sets, daily range): BP systolic 100–152; BP diastolic 51–67; PULSE 55–72; RESP 17–21; TEMP 97.5–98.1; O2SAT 93–96
[2024-03-03 09:53] LABS: Basophils # (auto) 0 10 ^3/uL (0-0.2); Basophils % (auto) 0.8 % (0.0-2.0); Eosinophils # (auto) 0.1 10 ^3/uL (0-0.8); Eosinophils % (auto) 1.9 % (0.0-7.0); Hematocrit 36.7 % (36.0-46.0); Hemoglobin 13.1 g/dL (12.2-16.2); Lymphocytes # (auto) 0.6 10 ^3/uL (0.4-5.4); Lymphocytes % (auto) 18.9 % (10.0-50.0); Mean Corpuscular Hemoglobin 34.4 pg (28.0-32.0); Mean Corpuscular Hgb Conc. 35.8 g/dL (32.0-36.0); Mean Corpuscular Volume 96.3 fL (80.0-100.0); Monocytes # (auto) 0.2 10 ^3/uL (0-1.3); Monocytes % (auto) 6.7 % (0.0-12.0); Neutrophils # (auto) 2.2 10 ^3/uL (1.6-8.6); Neutrophils % (auto) 71.7 % (37.0-80.0); Nucleated Red Blood Cells % 0.2 %; Red Blood Cells 3.82 10^6/uL (4.0-5.20); Red Cell Distribution Width 15.8 % (11.8-14.3)
[2024-03-03 10:03] LABS: Chloride 106 mmol/L (98-107); Potassium 3.7 mmol/L (3.5-5.1); Sodium 139 mmol/L (136-145)
[2024-03-03 10:05] LABS: Anion Gap 2 (5-15); Calcium 9.2 mg/dL (8.7-10.4); Carbon Dioxide 31 mmol/L (20-30)
[2024-03-03 10:10] LABS: Glucose 215 mg/dL (74-106)
[2024-03-03 10:20] LABS: Blood Urea Nitrogen 10 mg/dL (9-23)
[2024-03-03] MEDS ORDERED: TRAM50TA2 PO (17:45)
[2024-03-03] MEDS ORDERED: FURO40TA4 PO (18:01)
[2024-03-03] MEDS ORDERED: LACT10SO3 PO (18:01)
[2024-03-03] MEDS ORDERED: CEPH250C PO (18:01)
[2024-03-03] MEDS ORDERED: PROP1TAB53 PO (18:01)
[2024-03-03] MEDS ORDERED: CALC-10 PO (18:01)
[2024-03-03] MEDS ORDERED: SPIR25TA PO (18:01)
[2024-03-03] MEDS: HYDROcodone-ACET 5/325MG TAB PO PRN (21:46)
[2024-03-04 01:00] VITALS: BP_SYST 103; BP_SYST 60; BP_DIAS 46; PULSE 53; PULSE 69; RESP 18; TEMP 97.7; TEMP 98.1; O2SAT 92; O2SAT 99
[2024-03-04 05:00] VITALS: BP 108/46; PULSE 84; RESP 19; TEMP 98.2; O2SAT 100
[2024-03-04 08:00] VITALS: PULSE 57; RESP 18; O2SAT 96
[2024-03-04 08:40] VITALS: BP 113/68; PULSE 57; RESP 18; TEMP 97.7; O2SAT 94
[2024-03-04 12:40] VITALS: BP 120/51; PULSE 60; RESP 17; TEMP 98.2; O2SAT 94
[2024-03-04 12:57] VITALS: BP 113/48; PULSE 57
[2024-03-04] MEDS ORDERED: LIDO5PAD12 EX (15:41)
== END 2024-03-04 17:00 | disposition home health service (06) | DRG 543 ==
LOC: ER 18:56 → EDBD 18:56 → EDUNIT# 18:56 → CENTRAL 23:59 → OVERFLOW 23:59 → CENTRAL 02-29 01:32
PROVIDERS: ADMIT Internal Medicine; ATTEND Internal Medicine
DX: M48.54XA Collapsed vertebra, not elsewhere classified, thoracic region, initial encounter for fracture (principal); J90 Pleural effusion, not elsewhere classified; N39.0 Urinary tract infection, site not specified; K76.6 Portal hypertension; M47.816 Spondylosis without myelopathy or radiculopathy, lumbar region; K74.60 Unspecified cirrhosis of liver; I11.0 Hypertensive heart disease with heart failure; E11.9 Type 2 diabetes mellitus without complications; I50.9 Heart failure, unspecified; M81.0 Age-related osteoporosis without current pathological fracture; B19.20 Unspecified viral hepatitis C without hepatic coma; K80.20 Calculus of gallbladder without cholecystitis without obstruction; I35.0 Nonrheumatic aortic (valve) stenosis; D69.6 Thrombocytopenia, unspecified; S09.90XA Unspecified injury of head, initial encounter; W18.39XA Other fall on same level, initial encounter; E87.6 Hypokalemia; Z88.7 Allergy status to serum and vaccine; Z83.3 Family history of diabetes mellitus; Z82.49 Family history of ischemic heart disease and other diseases of the circulatory system; Y93.89 Activity, other specified; Y92.89 Other specified places as the place of occurrence of the external cause; Y99.8 Other external cause status
CPT/HCPCS: 36415; 36600; 70450; 71045; 71250; 72125; 72128; 72131; 73030; 73200; 74176; 80048; 80053; 81001; 82140; 82805; 82962; 83036; 83880; 84484; 85025; 85610; 85730; 93005; 97110; 97116; 97163; 97530; G0378; J1815; J2405